=== PATIENT | male | born 1985 | race Asian ===

== ENCOUNTER 2021-07-18 19:09 | Emergency (ER) | payer OTHER ==
[2021-07-18 19:27] VITALS: BP 134/84; PULSE 85; TEMP 98.6; BMI 25.7
[2021-07-18] MEDS ORDERED: KETOROLAC TROMETHAMINE 30 MG/1 ML VIAL IM ONE (20:08)
[2021-07-18] MEDS ORDERED: KETOROLAC TROMETHAMINE 30 MG/1 ML VIAL ONE ×2 (20:09→20:13)
== END 2021-07-18 20:54 | disposition home or self-care (01) ==
LOC: JER 19:09 → JERFT 19:09
PROC: 3E023GC Introduction of Other Therapeutic Substance into Muscle, Percutaneous Approach (ICD-10-PCS; principal; 2021-07-18)
DX: M54.89 Other dorsalgia (principal); M25.562 Pain in left knee; V49.40XA Driver injured in collision with unspecified motor vehicles in traffic accident, initial encounter
CPT/HCPCS: 99284-25